=== PATIENT | male | born 1955 | race Caucasian/White ===

== ENCOUNTER → 2022-06-30 | Outpatient (CLI) | payer BC ==
[~2022-06-30] MED LIST: HYDROCHLOROTHIA25 MG PO; LATANOPROST2.5 ML OP; LOTREL 10-40 M1 EACH PO; METFORMIN HCL500 MG PO; MULTI-VITAMIN1 EACH PO; OXYCODONE HCL20 M1 PO; PERCOCET 10-321 EACH PO; SIMVASTATIN40 MG PO
== END ==
LOC: DX 08:38
PROVIDERS: ATTEND Internal Medicine Gastroenterology
DX: Z86.010 Personal history of colon polyps (principal)
CPT/HCPCS: 74270